=== PATIENT | male | born 1955 | race Caucasian/White ===

== ENCOUNTER 2017-04-21 13:25 | Outpatient (CLI) ==
[2014-03-07 17:59] VITALS: BMI 29.2
--- NOTE | 2017-04-21 14:01 | DI ---
EXAM: CHEST FRONTAL AND LATERAL VIEWS HISTORY: Chronic obstructive pulmonary disease, acute bronchitis. COMPARISON: 10/30/2015 FINDINGS: Heart size and mediastinal contour remain within normal limits. Lungs are hyperinflated . Chronic-appearing interstitial changes. No acute infiltrates are seen. There is no consolidation , visible pleural fluid or pneumothorax. Bones reveal no acute fracture. IMPRESSION: Findings which can be consistent with the patient's history of chronic obstructive pul monary disease. No acute cardiopulmonary process.
== END 2017-04-21 13:26 | disposition home or self-care (01) ==
LOC: RAD 13:25
PROVIDERS: ATTEND Internal Medicine
DX: J44.0 Chronic obstructive pulmonary disease with (acute) lower respiratory infection (principal); J20.9 Acute bronchitis, unspecified

== ENCOUNTER 2017-07-31 09:23 | Outpatient (CLI) ==
[2014-03-07 17:59] VITALS: BMI 29.2
--- NOTE | 2017-07-31 10:04 | DI ---
EXAM: Three views of the lumbar spine HISTORY: Left hip and leg pain. COMPARISON: Lumbar spine 10/30/2015 FINDINGS: There is no acute compression fracture or subluxation of the lumbosacral spine. There are scattered anterior disc osteophytes. There is scattered facet arthropathy throughout the lumbosacral spine with narrowing at L4-L5 and L5-S1. There is narrowing of the neural foramen at L4-L5 and L5-S 1. The soft tissues are unremarkable. IMPRESSION: Moderate degenerative disease throughout the lumbosacral spine with narrowing of the neural foramen a t L4-L5 and L5-S1. No acute compression fracture is identified.
--- NOTE | 2017-07-31 10:08 | DI ---
EXAM: Two views of the left hip. History: Left hip pain. Findings: No acute fracture or dislocation. Surgical clips are seen projecting over the scrotal reg ion. Mild to moderate narrowing of the left hip joint with subchondral sclerosis and small osteophyt es. Impression: 1. No acute osseous abnormality. 2. Mild to moderate arthritis of the left hip joint.
== END 2017-07-31 09:24 | disposition home or self-care (01) ==
LOC: RAD 09:23
PROVIDERS: ATTEND Internal Medicine
DX: M54.5 Low back pain (principal); M25.552 Pain in left hip; M79.605 Pain in left leg

== ENCOUNTER 2018-03-26 06:46 | Outpatient (CLI) ==
[2014-03-07 17:59] VITALS: BMI 29.2
--- NOTE | 2018-03-27 11:39 | STRESSECHO ---
Date of Test: 03/26/18 Ordering Physician: DR. 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[employer] Reason for Exam: CHEST PAIN, COPD, SOB Smoking History: 30 PK/YRS Height: 69 " Weight: 189 LBS Current Medications: NORCO, ASA, LOSARTAN, LIPITOR, ODETTE, PANTOPRAZOLE, PROBIOTIC Physical Findings: S1, S2, NO S3 Resting EKG: SINUS RHYTHM/ NO ACUTE CHANGES Target Heart Rate: 132/156 S-T SEGMENT STAGE MPH/GRADE HEART RATE BPM BLOOD PRESSURE MMHG RHYTHM +/- ELEVATION DEPRESSION SYMPTOMS,COMMENTS AT REST 62 116/61 SR X NONE 1 1.7/10% 140/76 SR X 2 2.5/12% 3 3.4/14% 4 4.2/16% 5 5.0/18% Immediately After 136 140/76 SR X SHORT OF BREATH Minutes Post Exercise 3:00 72 SR X Minutes Post Exercise DURATION OF EXERCISE: 2:10 MAXIMUM HEART RATE REACHED: 136 REASON FOR TERMINATION: SHORT OF BREATH 97% OXYGEN SATURATION WITH EXERCISE ON ROOM AIR INTERPRETATION: 1. NO EVIDENCE OF ISCHEMIA BY ST-T WAVE 2. NO CHEST PAIN OR DISCOMFORT 3. NO ARRHYTHMIAS 4. BLOOD PRESSURE RESPONSE: ADEQUATE NORMAL LEFT VENTRICULAR CONTRACTILITY--RESTING AND POST EXERCISE MTDD
--- NOTE | 2018-03-27 12:04 | ECHO2D ---
Date of Exam: 03/26/18 Ordering Physician: DR. LUL STILL Room #: OP Reason for Echo: CHEST PAIN, SOB, COPD M-Mode Normal Adult Results LV Dimensions Normal Adult Results AoV Opening excursions >1.6 >1.6 LVEDD-base- 3.5-5.8 3.6 Ao root dimensions 2.0-3.7 3.5 LVESD-base- 3.1-4.6 L. Atrium dimensions 1.9-3.8 4.1 Post. Wall thickness 0.8-1.1 1.4 IV septum (thickness) 0.7-1.2 1.4 Post. Wall excursion 0.72-1.3 NORMAL Septal motion NORMAL Systolic motion R. Ventricular cavity 1.5-2.0 NORMAL LVEF 60% 70% Paradoxical septal wall motion NORMAL 2-D : 2-D M Mode Echocardiogram was performed using apical four chamber and left parasternal long and short axis views. Mitral, tricuspid and aortic valves appear to be normal. Contractility of the left ventricle seems to be normal, so is the cavity size. Enlarged Left atrial cavity. Aortic root appears to be normal. There is no pericardial effusion. There is no thrombus noted in the left ventricular or left aortic cavity. No mitral valve prolapse noted. M-MODE: MV: NORMAL AV: NORMAL TV: NORMAL PV: CHAMBER SIZE: ENLARGED LEFT ATRIAL CAVITY WALL MOTION: NORMAL PERICARDIUM: NORMAL INTERPRETATION: 1. LEFT VENTRICULAR HYPERTROPHY MILD TO MODERATE 2. MILDLY ENLARGED LEFT ATRIAL CAVITY 3. NORMAL VALVES 4. NORMAL LEFT VENTRICULAR CONTRACTILITY--NORMAL LEFT VENTRICULAR SIZE MTDD
--- NOTE | 2018-03-27 12:40 | ECHOSTRESS ---
Date of Exam: 03/26/18 Ordering Physician: DR. LUL STILL Reason for Echo: CHEST PAIN, COPD, SOB, STRESS TEST --NO ISCHEMIA M-Mode Normal Adult Results LV Dimensions Normal Adult Results AoV Opening excursions >1.6 LVEDD-base- 3.5-5.8 Ao root dimensions 2.0-3.7 LVESD-base- 3.1-4.6 L. Atrium dimensions 1.9-3.8 Post. Wall thickness 0.8-1.1 IV septum (thickness) 0.7-1.2 Post. Wall excursion 0.72-1.3 Septal motion Systolic motion R. Ventricular cavity 1.5-2.0 LVEF 60% Paradoxical septal wall motion 2-D: NORMAL LEFT VENTRICULAR CONTRACTILITY--RESTING AND POST EXERCISE M-MODE: MV: AV: TV: PV: CHAMBER SIZE: WALL MOTION: NORMAL LEFT VENTRICULAR CONTRACTILITY--RESTING AND POST EXERCISE PERICARDIUM: INTERPRETATION: 1. NORMAL LEFT VENTRICULAR CONTRACTILITY--RESTING AND POST EXERCISE MTDD
== END 2018-03-26 06:47 | disposition home or self-care (01) ==
LOC: CAR 06:46
PROVIDERS: ATTEND Internal Medicine
DX: R06.02 Shortness of breath (principal); R07.9 Chest pain, unspecified; J44.9 Chronic obstructive pulmonary disease, unspecified

== ENCOUNTER 2018-04-04 14:35 | Outpatient (CLI) ==
[2014-03-07 17:59] VITALS: BMI 29.2
--- NOTE | 2018-04-04 15:03 | DI ---
EXAM: Two views of the chest. History: Cough and chest pain. Comparison: Chest radiograph 04/21/2017 Findings: Heart size is within normal limits. No focal consolidation. No appreciable pleural fluid and no pneumothorax. No acute osseous abnormalities. Calcified granulomas again seen within the th orax. Impression: No acute cardiopulmonary process.
== END 2018-04-04 14:36 | disposition home or self-care (01) ==
LOC: RAD 14:35
PROVIDERS: ATTEND Internal Medicine
DX: R05 Cough (principal); R07.9 Chest pain, unspecified